=== PATIENT | female | born 1965 | race Caucasian/White ===

== ENCOUNTER 2016-12-03 12:48 | Emergency (ER) | payer BC, OTHER ==
[~2016-12-03] VITALS: Ht 162.6 cm; Wt 99.3 kg
[~2016-12-03 12:48] MED LIST: CLONPOW23 XX; HYDR25TA4 PO; LIS5T GT; PANT1INJ3 IV; PIRO-23 PO; TRAZ50TA2 PO; [UNRECOGNIZED DRUG - CODE] TD
[2016-12-03] MEDS ORDERED: SODIUM CHLORIDE 0.9% 1,000 ML IVB ONE (15:36)
[2016-12-03] MEDS ORDERED: KETOROLAC TROMETH 30 MG/ML 1ML VIAL IV ONE (15:45)
[2016-12-03 16:39] LABS: Basophils # (auto) 0 uL; Basophils % (auto) 0.2 % (0.0-2.0); Eosinophils # (auto) 0.1 uL; Eosinophils % (auto) 1.1 % (0.0-7.0); Hematocrit 37.2 % (36.0-46.0); Hemoglobin 12.5 g/dL (12.2-16.2); Lymphocytes # (auto) 1.7 uL; Lymphocytes % (auto) 19.7 % (10.0-50.0); Mean Corpuscular Hgb Conc. 33.7 g/dL (32.0-36.0); Mean Platelet Volume 7.2 fL (7.4-10.4); Monocytes # (auto) 0.5 uL; Monocytes % (auto) 5.6 % (0.0-12.0); Neutrophils # (auto) 6.3 uL; Neutrophils % (auto) 73.4 % (37.0-80.0); Platelet Count (auto) 396 10^3/uL (140-450); Red Cell Distribution Width 13.7 % (11.6-16.0); White Blood Cell 8.6 10^3/uL (4.4-10.8)
[2016-12-03 16:54] LABS: Albumin 3.6 g/dL (3.4-5.0); Calcium 9.1 mg/dL (8.5-10.1); Potassium 3.8 mmol/L (3.5-5.1)
[2016-12-03 16:56] LABS: BUN/Creatinine Ratio 23.1
[2016-12-03 16:59] LABS: Bilirubin, Total 0.3 mg/dL (0.2-1.0); Total Protein 7.3 g/dL (6.4-8.2)
[2016-12-03 18:01] LABS: Urine Bilirubin Negative (Negative); Urine Blood Negative /uL (Negative); Urine Color Yellow (Yellow); Urine Glucose Normal (Normal); Urine Ketone Negative (Negative); Urine Nitrite Negative (Negative); Urine RBC 1 /hpf (0 - 4); Urine Squamous Epithelial Cell FEW /hpf (<5); Urine Urobilinogen Normal (Negative)
[2016-12-03 19:14] VITALS: BP 107/76
== END 2016-12-03 19:27 | disposition home or self-care (01) ==
LOC: ER 13:04
DX: R10.9 Unspecified abdominal pain (principal); M54.9 Dorsalgia, unspecified; K21.9 Gastro-esophageal reflux disease without esophagitis; I10 Essential (primary) hypertension; K76.0 Fatty (change of) liver, not elsewhere classified; Z90.710 Acquired absence of both cervix and uterus; Z90.89 Acquired absence of other organs; Z88.6 Allergy status to analgesic agent; Z98.890 Other specified postprocedural states
CPT/HCPCS: 36415; 74176; 80053; 81001; 82150; 83690; 85025; 94761; 96361; 96374; 99285; J1885; J7030

== ENCOUNTER 2017-03-04 14:11 | Inpatient (IN) | payer BC ==
[~2017-03-04] VITALS: Ht 162.6 cm; Wt 119.1 kg
[2017-03-04 14:37] LABS: Basophils # (auto) 0 uL; Basophils % (auto) 0.3 % (0.0-2.0); CONDITION Y; Eosinophils # (auto) 0.6 uL; Eosinophils % (auto) 7.3 % (0.0-7.0); Hematocrit 35.6 % (36.0-46.0); Hemoglobin 12.1 g/dL (12.2-16.2); Lymphocytes # (auto) 1.8 uL; Lymphocytes % (auto) 24.4 % (10.0-50.0); Mean Corpuscular Hemoglobin 29.1 pg (28.0-32.0); Mean Corpuscular Volume 85.4 fL (80.0-100.0); Mean Platelet Volume 6.8 fL (7.4-10.4); Monocytes # (auto) 0.7 uL; Monocytes % (auto) 9.6 % (0.0-12.0); Neutrophils # (auto) 4.4 uL; Neutrophils % (auto) 58.4 % (37.0-80.0); Platelet Count (auto) 344 10^3/uL (140-450); Red Cell Distribution Width 13.3 % (11.6-16.0); White Blood Cell 7.5 10^3/uL (4.4-10.8)
[2017-03-04 14:52] LABS: Albumin 3.7 g/dL (3.4-5.0); BUN/Creatinine Ratio 21.4; Calcium 8.9 mg/dL (8.5-10.1)
[2017-03-04 14:55] LABS: Bilirubin, Total 0.4 mg/dL (0.2-1.0); Total Protein 7.1 g/dL (6.4-8.2)
[2017-03-04 15:01] LABS: B-Type Natriuretic Peptide 2.81 pg/mL (0-100)
[2017-03-04 15:03] LABS: Temperature: 22.9 C (20.0-25.0)
[2017-03-04] MEDS ORDERED: HYDROcodone-ACET 10/325MG TAB PO ONE (17:15)
[2017-03-04 17:23] LABS: Urine Bilirubin Negative (Negative); Urine Blood Negative /uL (Negative); Urine Color Yellow (Yellow); Urine Glucose Normal (Normal); Urine Ketone Negative (Negative); Urine Nitrite Negative (Negative); Urine RBC <1 /hpf (0 - 4); Urine Squamous Epithelial Cell FEW /hpf (<5); Urine Urobilinogen Normal (Negative)
[2017-03-04] MEDS ORDERED: cefTRIAXone 1GM/50ML D5W 50 ML IV ONE (17:45)
[2017-03-04] MEDS ORDERED: MORPHINE SULF INJ 2 MG/ML SYRINGE 1ML IV PRN (18:15)
[2017-03-04] MEDS ORDERED: TEMAZEPAM 15 MG CAP PO PRN (18:15)
[2017-03-04] MEDS ORDERED: PROMETHAZINE HCL 25 MG/ML 1ML IV PRN (18:15)
[2017-03-04] MEDS ORDERED: NITROGLYCERIN 0.4 MG SL TAB SL PRN (18:15)
[2017-03-04] MEDS ORDERED: HYDROcodone-ACET 5/325MG TAB PO PRN (18:15)
[2017-03-04] MEDS ORDERED: ACETAMINOPHEN 500 MG TAB PO PRN (18:15)
[2017-03-04] MEDS ORDERED: LACTULOSE 20Gm/30ML SOLN PO PRN (18:15)
[2017-03-04] MEDS: SODIUM CHLORIDE 0.9% 1,000 ML IV SCH (18:18)
[2017-03-04] MEDS ORDERED: ENOXAPARIN SOD 40 MG/0.4 ML SYRINGE SC ONE (18:30)
[2017-03-04] MEDS ORDERED: traZODone HCL 50 MG TAB PO ONE (18:30)
[2017-03-04] MEDS ORDERED: PANTOPRAZOLE 40 MG/10 ML VIAL IV ONE (18:30)
[2017-03-04] MEDS ORDERED: LISINOPRIL 5 MG TAB GT ONE (18:30)
[2017-03-04] MEDS: MORPHINE SULFATE 4 MG/ML SYRG IV PRN (18:34)
[2017-03-04] MEDS ORDERED: PANT1INJ3 IV (18:45)
[2017-03-04] MEDS ORDERED: PANT40TA2 PO (18:45)
[2017-03-04] MEDS ORDERED: CITA-77 PO (18:46)
[2017-03-04] MEDS ORDERED: OXYB5TAB61 PO (18:47)
[2017-03-04] MEDS ORDERED: OXYMTAB PO (18:49)
[2017-03-04] MEDS ORDERED: OXYMTAB2 PO (18:49)
[2017-03-04 20:30] VITALS: BP 115/69
[2017-03-04 20:37] VITALS: BP 115/69
[2017-03-04] MEDS: CLINDAMYCIN 600MG IV 50 ML IV SCH (21:26)
[2017-03-04] MEDS: clonazePAM 0.5 MG TAB PO SCH (21:26)
[2017-03-04] MEDS ORDERED: CLONAZEPAM 1 MG XX SCH (22:00)
[2017-03-04] MEDS ORDERED: FAMOTIDINE 20 MG TAB PO SCH (22:00)
[2017-03-04] MEDS ORDERED: traZODone HCL 50 MG TAB PO SCH (22:00)
[2017-03-05] VITALS (7 sets, daily range): BP systolic 103–122; BP diastolic 55–66
[2017-03-05] MEDS: MORPHINE SULFATE 4 MG/ML SYRG IV PRN ×3 (04:09→14:05)
[2017-03-05] MEDS: SODIUM CHLORIDE 0.9% 1,000 ML IV SCH ×2 (06:31→14:05)
[2017-03-05] MEDS: CLINDAMYCIN 600MG IV 50 ML IV SCH ×3 (06:32→21:55)
[2017-03-05] MEDS: cefTRIAXone 1GM/50ML D5W 50 ML IV SCH (08:38)
[2017-03-05] MEDS ORDERED: HCTZ 25 MG TAB PO ONE (09:30)
[2017-03-05] MEDS ORDERED: PANTOPRAZOLE 40 MG TAB PO ONE (09:30)
[2017-03-05] MEDS ORDERED: LISINOPRIL 5 MG TAB GT SCH (10:00)
[2017-03-05] MEDS ORDERED: PANTOPRAZOLE 40 MG/10 ML VIAL IV SCH (10:00)
[2017-03-05] MEDS ORDERED: LISINOPRIL 5 MG TAB PO SCH ×2 (10:00→22:00)
[2017-03-05] MEDS ORDERED: ROTIGOTINE TD SCH (10:00)
[2017-03-05] MEDS: ENOXAPARIN SOD 40 MG/0.4 ML SYRINGE SC SCH (11:14)
[2017-03-05] MEDS: OXYBUTYNIN CHL 5 MG TAB PO SCH ×2 (11:14→21:56)
[2017-03-05] MEDS: clonazePAM 0.5 MG TAB PO SCH ×2 (11:14→22:00)
[2017-03-05] MEDS ORDERED: ROTI4DIS TD (19:14)
[2017-03-05] MEDS ORDERED: LISINOPRIL 5 MG TAB PO ONE (22:00)
[2017-03-05] MEDS ORDERED: CITALOPRAM HYDROBR 20 MG TAB PO ONE (22:00)
[2017-03-05] MEDS ORDERED: CITALOPRAM HYDROBR 20 MG TAB PO SCH (22:00)
[2017-03-06] MEDS: MORPHINE SULFATE 4 MG/ML SYRG IV PRN ×3 (02:15→11:06)
[2017-03-06] MEDS: SODIUM CHLORIDE 0.9% 1,000 ML IV SCH ×2 (02:53→10:05)
[2017-03-06 05:00] VITALS: BP 109/63
[2017-03-06] MEDS: CLINDAMYCIN 600MG IV 50 ML IV SCH (06:30)
[2017-03-06 06:49] LABS: Basophils # (auto) 0 uL; Basophils % (auto) 0.5 % (0.0-2.0); CONDITION Y; Eosinophils # (auto) 0.4 uL; Eosinophils % (auto) 6.5 % (0.0-7.0); Hematocrit 36.4 % (36.0-46.0); Hemoglobin 12.3 g/dL (12.2-16.2); Lymphocytes # (auto) 1.9 uL; Lymphocytes % (auto) 29.9 % (10.0-50.0); Mean Corpuscular Hemoglobin 29.4 pg (28.0-32.0); Mean Corpuscular Hgb Conc. 33.8 g/dL (32.0-36.0); Mean Platelet Volume 7.4 fL (7.4-10.4); Monocytes # (auto) 0.6 uL; Monocytes % (auto) 10.2 % (0.0-12.0); Neutrophils # (auto) 3.3 uL; Neutrophils % (auto) 52.9 % (37.0-80.0); Platelet Count (auto) 345 10^3/uL (140-450); Red Cell Distribution Width 13.4 % (11.6-16.0); White Blood Cell 6.2 10^3/uL (4.4-10.8)
[2017-03-06 06:55] LABS: Albumin 3.3 g/dL (3.4-5.0); Potassium 4.4 mmol/L (3.5-5.1)
[2017-03-06 07:00] LABS: BUN/Creatinine Ratio 17.1; Bilirubin, Total 0.2 mg/dL (0.2-1.0); Calcium 8.7 mg/dL (8.5-10.1); Total Protein 6.6 g/dL (6.4-8.2)
[2017-03-06 08:00] VITALS: BP 125/73
[2017-03-06 09:14] VITALS: BP 125/73
[2017-03-06] MEDS: cefTRIAXone 1GM/50ML D5W 50 ML IV SCH (09:33)
[2017-03-06] MEDS: clonazePAM 0.5 MG TAB PO SCH (09:34)
[2017-03-06] MEDS: OXYBUTYNIN CHL 5 MG TAB PO SCH (09:34)
[2017-03-06] MEDS: ENOXAPARIN SOD 40 MG/0.4 ML SYRINGE SC SCH (09:36)
[2017-03-06 10:52] VITALS: BP 125/73
== END 2017-03-06 11:48 | disposition home or self-care (01) | DRG 603 ==
LOC: ER 14:14 → INTOOBSV 14:15 → OBSVTOIN 14:15 → TELE 14:15 → TELE-CENTR 20:15
PROVIDERS: ADMIT Internal Medicine; ATTEND Internal Medicine
DX: L03.116 Cellulitis of left lower limb (principal); E44.1 Mild protein-calorie malnutrition; I12.9 Hypertensive chronic kidney disease with stage 1 through stage 4 chronic kidney disease, or unspecified chronic kidney disease; Z68.42 Body mass index [BMI] 45.0-49.9, adult; D63.1 Anemia in chronic kidney disease; E66.9 Obesity, unspecified; G25.81 Restless legs syndrome; N18.2 Chronic kidney disease, stage 2 (mild); Z82.49 Family history of ischemic heart disease and other diseases of the circulatory system; Z80.9 Family history of malignant neoplasm, unspecified; Z88.8 Allergy status to other drugs, medicaments and biological substances; Z90.89 Acquired absence of other organs; Z90.710 Acquired absence of both cervix and uterus
CPT/HCPCS: 36415; 71010; 80053; 81001; 83880; 85025; 85652; 87040; 93970; 94761; 96365; 96372; 96375; C9113; G0378; J0696; J3490

== ENCOUNTER 2017-07-21 12:10 | Emergency (ER) | payer BC ==
[~2017-07-21] VITALS: Ht 162.6 cm; Wt 111.1 kg
[~2017-07-21 12:10] MED LIST changes: +CITA-77 PO; -CLONPOW23 XX; +OXYB5TAB61 PO; +OXYMTAB PO; -PANT1INJ3 IV; +PANT40TA2 PO; -PIRO-23 PO; +ROTI4DIS TD; -TRAZ50TA2 PO; -[UNRECOGNIZED DRUG - CODE] TD
[2017-07-21 12:18] VITALS: BP 130/62
[2017-07-21] MEDS ORDERED: ALUM & MAG HYDROX-SIMETH LIQ(MAALOX) 30 ML PO ONE (12:30)
[2017-07-21] MEDS ORDERED: DONNATAL 5ml ORAL Elix (BELLADONNA ALK-PHENOBARB) PO ONE (12:30)
[2017-07-21] MEDS ORDERED: LIDOCAINE VISCOUS 2% 15ML UD PO ONE (12:30)
[2017-07-21 13:41] LABS: Basophils # (auto) 0 uL; Basophils % (auto) 0.6 % (0.0-2.0); Eosinophils # (auto) 0.4 uL; Eosinophils % (auto) 5.6 % (0.0-7.0); Hematocrit 39.7 % (36.0-46.0); Hemoglobin 13.3 g/dL (12.2-16.2); Lymphocytes # (auto) 2.3 uL; Lymphocytes % (auto) 28.6 % (10.0-50.0); Mean Corpuscular Hemoglobin 28.7 pg (28.0-32.0); Mean Corpuscular Hgb Conc. 33.5 g/dL (32.0-36.0); Mean Corpuscular Volume 85.8 fL (80.0-100.0); Monocytes # (auto) 0.6 uL; Monocytes % (auto) 7.6 % (0.0-12.0); Neutrophils # (auto) 4.6 uL; Neutrophils % (auto) 57.6 % (37.0-80.0); Nucleated Red Blood Cells % 0.1 %; Platelet Count (auto) 307 10^3/uL (140-450); Red Blood Cells 4.62 10^6/uL (4.0-5.20); Red Cell Distribution Width 13.9 % (11.8-14.3); White Blood Cell 7.9 10^3/uL (4.4-10.8)
[2017-07-21 14:06] LABS: BUN/Creatinine Ratio 18.5; Bilirubin, Total 0.4 mg/dL (0.2-1.0); Calcium 9.1 mg/dL (8.5-10.1); Potassium 3.7 mmol/L (3.5-5.1); Total Protein 7.3 g/dL (6.4-8.2)
[2017-07-21 14:32] LABS: Urine Bacteria NONE SEEN /hpf (None Seen); Urine Blood Negative /uL (Negative); Urine Specific Gravity 1.016 (1.001-1.035); Urine WBC 1 /hpf (0 - 5)
== END 2017-07-21 16:46 | disposition home or self-care (01) ==
LOC: ER 12:10
DX: K29.70 Gastritis, unspecified, without bleeding (principal); I10 Essential (primary) hypertension; Z90.710 Acquired absence of both cervix and uterus; Z90.89 Acquired absence of other organs; Z88.8 Allergy status to other drugs, medicaments and biological substances
CPT/HCPCS: 36415; 80053; 81001; 82150; 83690; 85025; 93005

== ENCOUNTER 2017-10-24 10:47 | Emergency (ER) | payer BC ==
[~2017-10-24] VITALS: Ht 162.6 cm; Wt 119.7 kg
[2017-10-24 11:44] LABS: Basophils # (auto) 0 uL; Basophils % (auto) 0.6 % (0.0-2.0); Eosinophils # (auto) 0.1 uL; Eosinophils % (auto) 1.8 % (0.0-7.0); Hematocrit 37.9 % (36.0-46.0); Hemoglobin 12.7 g/dL (12.2-16.2); Lymphocytes # (auto) 2.2 uL; Lymphocytes % (auto) 27.7 % (10.0-50.0); Mean Corpuscular Hemoglobin 29.3 pg (28.0-32.0); Mean Corpuscular Hgb Conc. 33.5 g/dL (32.0-36.0); Mean Corpuscular Volume 87.5 fL (80.0-100.0); Monocytes # (auto) 0.6 uL; Monocytes % (auto) 7.7 % (0.0-12.0); Neutrophils # (auto) 4.9 uL; Neutrophils % (auto) 62.2 % (37.0-80.0); Platelet Count (auto) 315 10^3/uL (140-450); Red Blood Cells 4.33 10^6/uL (4.0-5.20); Red Cell Distribution Width 14.2 % (11.8-14.3)
[2017-10-24 12:12] LABS: Urine Bacteria NONE SEEN /hpf (None Seen); Urine Blood Negative /uL (Negative); Urine Specific Gravity 1.018 (1.001-1.035); Urine WBC 6 /hpf (0 - 5)
[2017-10-24 12:34] LABS: Alanine Aminotransferase 47 U/L (13-56); Albumin 4.1 g/dL (3.4-5.0); Alkaline Phosphatase 87 U/L (45-117); Anion Gap 8 (5-15); Aspartate Aminotransferase 34 U/L (15-37); BUN/Creatinine Ratio 11.9; Bilirubin, Total 0.5 mg/dL (0.2-1.0); Blood Urea Nitrogen 14 mg/dL (7-18); Calcium 9.3 mg/dL (8.5-10.1); Carbon Dioxide 27 mmol/L (21-32); Chloride 104 mmol/L (98-107); GFR African American 62 mL/min; GFR Non-African American 51 mL/min; Glucose 110 mg/dL (74-106); Potassium 4.3 mmol/L (3.5-5.1); Sodium 139 mmol/L (136-145); Total Protein 7.6 g/dL (6.4-8.2)
[2017-10-24 14:23] VITALS: BP 137/76
== END 2017-10-24 14:28 | disposition home or self-care (01) ==
LOC: ER 10:47
DX: L03.116 Cellulitis of left lower limb (principal); K21.9 Gastro-esophageal reflux disease without esophagitis; I10 Essential (primary) hypertension; Z90.89 Acquired absence of other organs; Z90.710 Acquired absence of both cervix and uterus; Z88.1 Allergy status to other antibiotic agents; Z88.8 Allergy status to other drugs, medicaments and biological substances
CPT/HCPCS: 36415; 71046; 80053; 81001; 84484; 85025; 93005; 93971